=== PATIENT | male | born 1940 | race Two or more races ===

== ENCOUNTER 2017-02-01 19:00 | Inpatient (IN) | payer OTHER, MEDICAID ==
[~2017-02-01] VITALS: Ht 167.6 cm; Wt 93.4 kg
--- NOTE | 2017-02-01 19:14 | NUR ---
PT BIB FAMILY C/O FEVER, CHILLS, AND BODY ACHES. PT AOX3 GREEK SPEAKING. FAMILY AT BEDSIDE TO TRANSLATE. RR EVEN AND UNLABORED. NO SOB NOTED. NAD NOTED. NO NVD AT THIS TIME. PT GOWNED AND PLACED ON MONITOR WAITING FOR MD QUIGLEY.
[2017-02-01] MEDS ORDERED: ONDANSETRON HCL/PF 4 MG/2 ML VIAL ONE (19:16)
[2017-02-01] MEDS ORDERED: ACETAMINOPHEN ES 500 MG TABLET ONE ×2 (19:16→21:19)
[2017-02-01 19:18] LABS: BASOPHILS # (AUTO) 0.1 /CMM (0.0-0.2); BASOPHILS % (AUTO) 0.7 % (0.0-2.0); EOSINOPHILS % (AUTO) 0.5 % (0.0-6.0); HEMATOCRIT 41 % (39-51); HEMOGLOBIN 13.6 g/dL (13.5-17.5); LYMPHOCYTES # (AUTO) 0.7 /CMM (0.8-4.8); LYMPHOCYTES % (AUTO) 7.8 % (20.0-44.0); MEAN CORPUSCULAR HEMOGLOBIN 30 PG (26.0-33.0); MEAN CORPUSCULAR HGB CONC 34 g/dl (31.0-36.0); MEAN CORPUSCULAR VOLUME 88 fL (80-96); MONOCYTES # (AUTO) 0.1 /CMM (0.1-1.30); MONOCYTES % (AUTO) 0.7 % (2.0-12.0); NEUTROPHILS # (AUTO) 8.7 /CMM (1.8-8.9); NEUTROPHILS % (AUTO) 90.3 % (43.0-81.0); PLATELET COUNT (AUTO) 173 /CMM (150-450); RDW COEFFICIENT OF VARIATION 12.4 (11.5-15.0); WHITE BLOOD COUNT (AUTO) 9.6 K/uL (4.3-11.0)
--- NOTE | 2017-02-01 19:28 | NUR ---
URINE COLLECTED AND INFLUENZA COLLECTED. CALLED LAB FOR INFORMATION CODER.
[2017-02-01 19:30] LABS: CALCIUM, SERUM 8.7 mg/dL (8.5-10.1); CARBON DIOXIDE 25 mmol/L (21-32); CHLORIDE 99 mmol/L (98-107); CREATININE 1.4 mg/dL (0.6-1.3); GLUCOSE 129 mg/dL (74-106); POTASSIUM 3.1 mmol/L (3.5-5.1); SODIUM SERUM 136 mmol/L (136-145); UREA NITROGEN, BLOOD 9 mg/dL (7-18)
[2017-02-01] MEDS ORDERED: ONDANSETRON HCL/PF 4 MG/2 ML VIAL IVP ONE (19:30)
[2017-02-01] MEDS ORDERED: IV NS 0.9% 500 ML BAG IV ONE (19:30)
[2017-02-01] MEDS ORDERED: ACETAMINOPHEN ES 500 MG TABLET PO ONE ×2 (19:30→21:30)
[2017-02-01 19:32] LABS: INR 0.95 (0.87-1.13); PROTHROMBIN TIME 9.9 SECS (9.5-12.7)
[2017-02-01 19:33] LABS: APPEARANCE,URINE Slightly Cloudy (CLEAR); BILIRUBIN,URINE Negative (NEGATIVE); BLOOD, URINE Moderate Ery/uL (NEGATIVE); COLOR,URINE Yellow (YELLOW); KETONES,URINE Negative (NEGATIVE); LEUKOCYTE ESTERASE ,URINE Trace (NEGATIVE); NITRITE, URINE Negative (NEGATIVE); PH,URINE 5.5 (5.0-8.0); PROTEIN,URINE >=300 mg/dl (NEGATIVE); UGLUCOSE Negative (NEGATIVE); UROBILINOGEN,URINE 0.2 EU/dL (0.2)
[2017-02-01 19:35] LABS: ALANINE AMINOTRANSFERASE 29 U/L (12-78); ALKALINE PHOSPHATASE 100 U/L (46-116); ASPARTATE AMINOTRANSFERASE 26 U/L (15-37); BILIRUBIN,DIRECT 0.1 mg/dL (0.0-0.2); BILIRUBIN,TOTAL 0.6 mg/dL (0.2-1.0); TOTAL PROTEIN, SERUM 8.6 g/dL (6.4-8.2)
[2017-02-01 19:36] LABS: TROPONIN I < 0.017 ng/mL (0.00-0.056)
[2017-02-01 19:53] LABS: BACTERIA,URINE Few /HPF (None Seen); HYALINE CASTS, URINE Few /LPF (None Seen); MUCUS,URINE Rare /LPF (None Seen); SQUAMOUS EPITHELIAL CELL,UR Few /HPF (None Seen)
[2017-02-01] MEDS ORDERED: CEFTRIAXONE 1GM BAG (ER ONLY) 1 GM/50 ML PIGGYBACK IV ONE (20:00)
[2017-02-01] MEDS ORDERED: IV NS 0.9% 1,000 ML BAG IV ONE (20:00)
[2017-02-01] MEDS ORDERED: CEFTRIAXONE 1GM BAG (ER ONLY) 50 ML IV ONE (20:02)
[2017-02-01] MEDS ORDERED: LIDOCAINE 2% JEL UROJET 10 ML MM ONE ×2 (20:08→20:30)
--- NOTE | 2017-02-01 20:11 | NUR ---
CALLED [employer] FERMENTER OPERATOR WAS PAGED.
--- NOTE | 2017-02-01 21:17 | NUR ---
DR. ROSENBERG AWARE PT ORAL TEMP 103.1
--- NOTE | 2017-02-01 21:17 | NUR ---
REPORT GIVEN TO DORIS CR FOR [facility] BED 107.
--- NOTE | 2017-02-01 21:40 | NUR ---
BLOCK MACHINE OPERATOR NOTES RECEIVED PTS AND REPORT FROM NORMA ER NURSE , PTS IS 76 Y/O A/O TUNISIAN SPEAKING UNDER THE MEDICAL SERVICE OF DR KRISTAL AGUILERA, WITH ADMITTING DX OF SEPSIS /UTI , PTS ON O2 VIA NC AT 2 LITERS SATING 99%.FAMILY AT BEDSIDE , UPDATED ON PTS CURRENT CONDITION ROUTINE ADMISSION CARE RENDERED , ADMISSION ORDER NOTED AND CARREID OUT V/S STABLE EXCEPT TEMP 103. BED BATH RENDERED , COOLING BLANKET ADMINISTERED ,ALL NEEDS ATTENDED TOO CALL LIGHT,KEPT PTS CLEAN DRY AND COMFORTABLE. WITH HL ON RAC G#18 intact and patent .f/c intact draining with yellowish urine output. will continue to monitor.
--- NOTE | 2017-02-01 21:43 | NUR ---
PT TRASNFERRED PER ACLS PROTOCOL.
[2017-02-01 21:59] VITALS: BP 157/81
[2017-02-01] MEDS ORDERED: DEXTROSE 50%-WATER 50 ML DISP.SYRIN IV PRN (22:30)
[2017-02-01] MEDS ORDERED: ONDANSETRON HCL/PF 4 MG/2 ML VIAL IVP PRN (22:30)
[2017-02-01] MEDS ORDERED: MAGNESIUM HYDROXIDE 30 ML UDC PO PRN (22:30)
[2017-02-01] MEDS ORDERED: Z GUARD REMEDY 2 OZ OINT TP PRN (22:30)
[2017-02-01] MEDS ORDERED: ENOXAPARIN SODIUM 40 MG/0.4 ML DISP.SYRIN SQ SCH (22:30)
[2017-02-01] MEDS ORDERED: VANCOMYCIN 1 GM in IV D5W 250 ML IV SCH (22:30)
[2017-02-01] MEDS ORDERED: POTASSIUM CHLORIDE 20 MEQ TAB.PRT.SR PO ONE ×2 (22:30→22:50)
[2017-02-01] MEDS ORDERED: HYDROCODONE/APAP 5/325MG 1 EACH TABLET PO PRN (22:30)
[2017-02-01] MEDS ORDERED: MAG HYDROX/AL HYDROX/SIMETH 30 ML UDC PO PRN (22:30)
[2017-02-01] MEDS ORDERED: ZOLPIDEM TARTRATE 5 MG TABLET PO PRN (22:30)
[2017-02-01] MEDS ORDERED: ENOXAPARIN SODIUM 40 MG/0.4 ML DISP.SYRIN SQ ONE (22:50)
[2017-02-01] MEDS ORDERED: VANCOMYCIN 1 GM VIAL ONE (22:51)
[2017-02-01] MEDS: IV NS 0.9% 1,000 ML IV PRN (23:06)
[2017-02-02] VITALS: BP 137/73
--- NOTE | 2017-02-02 | NUR ---
SPEECH COMMUNICATION PROFESSOR NOTES TEMP OF 104.2 COLLING BLANKET APPLIED , DUE MEDS GIVEN ORDERED. WILL CONTINUE TO MONITOR.
--- NOTE | 2017-02-02 02:00 | NUR ---
BALL RACKER NOTES TEMP IS 103 CONTINUE ON COOLING BLANKET
--- NOTE | 2017-02-02 03:00 | NUR ---
LIME TRIMMER NOTES TEMP WENT DOWN TO 101 CONTINUE ON COOLING BLANKET ,IVF IN PROGRESS.
[2017-02-02] MEDS ORDERED: PIPERACILLIN /TAZOBACTAM 2.25 G VIAL IV ONE (03:01)
[2017-02-02 04:00] VITALS: BP 138/69
--- NOTE | 2017-02-02 04:29 | NUR ---
SACK MAKER NOTES UNABLE TO SCAN THE ZOSYN DOSE FOR 5AM DO IT MANUALLY D/T ZOSYN COMES ON 2.25GMS ORDER DOSE IS 4.5 GMS
--- NOTE | 2017-02-02 04:31 | NUR ---
BI APPLICATION DEVELOPER NOTES LATEST TEMP IS 100.4 PTS CONTINUE ON COOLING MEASURES.
[2017-02-02] MEDS ORDERED: PIPERACILLIN /TAZOBACTAM 4.5 G in IV D5W 50 ML IV SCH (05:00)
[2017-02-02 06:31] LABS: EOSINOPHILS % (AUTO) 0.1 % (0.0-6.0); HEMATOCRIT 44 % (39-51); HEMOGLOBIN 14.6 g/dL (13.5-17.5); LYMPHOCYTES # (AUTO) 0.3 /CMM (0.8-4.8); LYMPHOCYTES % (AUTO) 1.5 % (20.0-44.0); MEAN CORPUSCULAR HEMOGLOBIN 30 PG (26.0-33.0); MEAN CORPUSCULAR HGB CONC 33 g/dl (31.0-36.0); MEAN CORPUSCULAR VOLUME 90 fL (80-96); MONOCYTES # (AUTO) 0.4 /CMM (0.1-1.30); MONOCYTES % (AUTO) 1.9 % (2.0-12.0); NEUTROPHILS # (AUTO) 19.6 /CMM (1.8-8.9); NEUTROPHILS % (AUTO) 96.5 % (43.0-81.0); PLATELET COUNT (AUTO) 147 /CMM (150-450); RDW COEFFICIENT OF VARIATION 13.6 (11.5-15.0); RED BLOOD CELL COUNT(AUTO) 4.91 MIL/uL (4.5-6.0); WHITE BLOOD COUNT (AUTO) 20.3 K/uL (4.3-11.0)
--- NOTE | 2017-02-02 06:35 | NUR ---
MANAGER INFUSION NOTES PTS SLEEPING IN BED , LATEST TEMP IS 101 , CONTINUE ON COOLING MEASURES . DAUGHTER AT BEDSIDE . WILL INDORSE TO RN DAY SHIFT FOR CONTINUITY OF CARE.
--- NOTE | 2017-02-02 07:37 | NUR ---
RN NOTES RECEIVED PT IN STABLE CONDITION A&0X3, MOSTLY SAMI SPEAKING, ON 2L NC SATING WELL, NO SOB OR DISTRESS NOTED. SR ON THE TELE MONITOR HR 82. L HAND 22G IV SITE INTACT WITH IVF AT 100ML/HR. COOLING BLANKET IN PLACE. SON AT BEDSIDE. BED LOCKED AND IN LOWEST POSITION, CALL LIGHT WITHIN REACH, SIDE RAILS UPX3, WILL CONT TO STEPHANIE.
[2017-02-02 07:55] LABS: CHOLESTEROL 94 mg/dL (<200); HDL CHOLESTEROL 44 mg/dL (40-60); LDL 38 mg/dL (0-99); THYROID STIMULATING HORMONE 0.511 uIU/mL (0.358-3.74); TRIGLYCERIDES 67 mg/dL (30-150)
[2017-02-02 08:00] VITALS: BP 153/69
[2017-02-02] MEDS ORDERED: FEE PK DOSING 1 MIN EA MC ONE (08:10)
[2017-02-02] MEDS: BLOOD SUGAR DIAGNOSTIC 1 EACH STRIP IN SCH ×4 (08:26→22:45)
[2017-02-02] MEDS: ACETAMINOPHEN 325 MG TABLET PO PRN ×2 (08:26→17:12)
[2017-02-02 08:53] LABS: CARBON DIOXIDE 22 mmol/L (21-32); CHLORIDE 103 mmol/L (98-107); POTASSIUM 4.3 mmol/L (3.5-5.1); SODIUM SERUM 141 mmol/L (136-145)
[2017-02-02 08:54] LABS: CALCIUM, SERUM 8.7 mg/dL (8.5-10.1); CREATININE 1.5 mg/dL (0.6-1.3); GLUCOSE 139 mg/dL (74-106); MAGNESIUM 1.7 mg/dL (1.8-2.4); PHOSPHORUS 3.7 mg/dL (2.5-4.9); UREA NITROGEN, BLOOD 9 mg/dL (7-18)
[2017-02-02] MEDS ORDERED: FINA5TAB11 PO (09:00)
[2017-02-02] MEDS ORDERED: LISI40TA4 PO (09:00)
[2017-02-02] MEDS ORDERED: TAMS-12 PO (09:00)
[2017-02-02] MEDS ORDERED: AMLO10TA4 PO (09:00)
[2017-02-02] MEDS ORDERED: TIOT18CA3 IH (09:00)
[2017-02-02] MEDS ORDERED: PANT40TA2 PO (09:00)
[2017-02-02] MEDS ORDERED: METF500T7 PO (09:00)
[2017-02-02] MEDS ORDERED: METO25TA3 PO (09:00)
[2017-02-02] MEDS ORDERED: ASPI-1169 PO (09:00)
[2017-02-02] MEDS ORDERED: ISOS60TA4 PO (09:00)
[2017-02-02] MEDS ORDERED: ATOR40TA PO (09:00)
[2017-02-02 09:34] LABS: BAND % (MANUAL) 13 % (0.0-5.0); LYMPHOCYTES % (MANUAL) 1 % (16-48); MONOCYTES % (MANUAL) 4 % (0-11.0); NEUTROPHILS % (MANUAL) 82 (42-76)
[2017-02-02] MEDS ORDERED: VANCOMYCIN 0.75 GM in IV D5W 250 ML IV SCH (11:00)
[2017-02-02] MEDS ORDERED: IBUPROFEN 400 MG TABLET PO PRN (11:30)
[2017-02-02] MEDS ORDERED: AMLODIPINE BESYLATE 10 MG TABLET PO PRN (11:30)
[2017-02-02 12:00] VITALS: BP 118/48
[2017-02-02] MEDS ORDERED: PIPERACILLIN /TAZOBACTAM 3.375 G in IV D5W 50 ML IV SCH (12:00)
[2017-02-02] MEDS: INSULIN REGULAR, HUMAN 100 UNIT/ML 3 ML VIAL SQ PRN ×2 (12:13→22:38)
[2017-02-02] MEDS: Magnesium 1GM/D5W 100ML PREMIX 100 ML IV SCH ×2 (12:14→13:50)
[2017-02-02 16:00] VITALS: BP 153/72
[2017-02-02] MEDS: MEROPENEM 1 G in IV NS 0.9% 100 ML IV SCH (18:17)
--- NOTE | 2017-02-02 18:50 | NUR ---
RN NOTES PT REMAINED IN STABLE CONDITION, ALL NEEDS MET. FAMILY AT BEDSIDE. NO COMPLAINTS OF PAIN. WILL ENDORSE TO ONCOMING SHIFT.
--- NOTE | 2017-02-02 19:15 | NUR ---
MS RN NOTES RECEIVED PATIENT AND REPORT FROM DAY SHIFT
[2017-02-02 20:00] VITALS: BP 113/46
[2017-02-02] MEDS ORDERED: ENOXAPARIN SODIUM 40 MG/0.4 ML DISP.SYRIN SQ SCH (21:00)
[2017-02-02] MEDS ORDERED: ATORVASTATIN 40 MG TABLET PO SCH (22:00)
[2017-02-03 04:00] VITALS: BP 152/64
[2017-02-03] MEDS: IV NS 0.9% 1,000 ML IV PRN (04:15)
[2017-02-03] MEDS: ACETAMINOPHEN 325 MG TABLET PO PRN ×2 (05:53→14:35)
[2017-02-03 06:32] LABS: EOSINOPHILS % (AUTO) 0.2 % (0.0-6.0); HEMATOCRIT 41 % (39-51); HEMOGLOBIN 13.5 g/dL (13.5-17.5); LYMPHOCYTES # (AUTO) 0.6 /CMM (0.8-4.8); MEAN CORPUSCULAR HEMOGLOBIN 29 PG (26.0-33.0); MEAN CORPUSCULAR HGB CONC 33 g/dl (31.0-36.0); MEAN CORPUSCULAR VOLUME 89 fL (80-96); MONOCYTES # (AUTO) 0.4 /CMM (0.1-1.30); MONOCYTES % (AUTO) 3.6 % (2.0-12.0); NEUTROPHILS # (AUTO) 10.7 /CMM (1.8-8.9); NEUTROPHILS % (AUTO) 91.2 % (43.0-81.0); PLATELET COUNT (AUTO) 104 /CMM (150-450); RDW COEFFICIENT OF VARIATION 13.6 (11.5-15.0); RED BLOOD CELL COUNT(AUTO) 4.61 MIL/uL (4.5-6.0); WHITE BLOOD COUNT (AUTO) 11.7 K/uL (4.3-11.0)
[2017-02-03 06:50] LABS: CARBON DIOXIDE 26 mmol/L (21-32); CHLORIDE 103 mmol/L (98-107); CREATININE 1.2 mg/dL (0.6-1.3); GLUCOSE 116 mg/dL (74-106); MAGNESIUM 1.9 mg/dL (1.8-2.4); PHOSPHORUS 2.2 mg/dL (2.5-4.9); POTASSIUM 3.1 mmol/L (3.5-5.1); SODIUM SERUM 137 mmol/L (136-145); UREA NITROGEN, BLOOD 10 mg/dL (7-18)
--- NOTE | 2017-02-03 07:39 | NUR ---
RN OPENING NOTES RECEIVED PT AWAKE IN BED IN NO ACUTE SIGNS OF DISTRESS WITH DAUGHTER AT BEDSIDE. A/O X4, SPEAKS SAUDI ARABIAN MOSTLY. ON SUPPLEMENTAL 02 VIA N/C AT 2LPM, NO SOB NOTED. IV ACCESS ON L HAND 22G INTACT AND PATENT WITH IVF OF NS @ 100ML/HR INFUSING, NO SIGNS OF INFILTRATION NOTED. BED LOCKED AND IN LOWEST POSITION WITH SIDE RAILS UP X3. CALL LIGHT WITHIN REACH. WILL CONT TO MONITOR.
[2017-02-03 08:00] VITALS: BP 127/61
[2017-02-03] MEDS: BLOOD SUGAR DIAGNOSTIC 1 EACH STRIP IN SCH ×3 (08:00→17:47)
[2017-02-03] MEDS: LACTOBACILLUS RHAMNOSUS GG 1 EACH CAP.SPRINK PO SCH ×2 (08:49→16:32)
[2017-02-03] MEDS: MEROPENEM 1 G in IV NS 0.9% 100 ML IV SCH (08:49)
[2017-02-03] MEDS: ISOSORBIDE MONONITRATE 20 MG TABLET PO SCH ×2 (08:53→14:35)
[2017-02-03] MEDS ORDERED: TAMSULOSIN 0.4 MG CAP.SR.24H PO SCH (09:00)
[2017-02-03] MEDS ORDERED: ASPIRIN 81 MG TAB.CHEW PO SCH (09:00)
[2017-02-03] MEDS ORDERED: METOPROLOL SUCCINATE 50 MG TAB.SR.24H PO SCH (09:00)
[2017-02-03] MEDS ORDERED: FINASTERIDE (5 MG) 5 MG TABLET PO SCH (09:00)
--- NOTE | 2017-02-03 09:51 | NUR ---
RN NOTES PT NOTED WITH LOW K 3.1 AND PHOS 2.2, FLOUR INSPECTOR RISHABH AWARE WITH ORDER TO ADMINISTER KDUR 60 MEQ TAB X1 AND NEUTRA PHOS 500MG X1. WILL CONTINUE TO MONITOR.
[2017-02-03] MEDS ORDERED: K PHOS NEUTRAL 250 MG TABLET PO ONE (10:00)
[2017-02-03] MEDS ORDERED: POTASSIUM CHLORIDE 20 MEQ TAB.PRT.SR PO ONE (10:00)
--- NOTE | 2017-02-03 11:46 | NUR ---
RN NOTES RECEIVED CALL FROM LAB THAT PT'S PROCALCITONIN LEVEL IS HIGH 31.4, MANAGER MOUNTAIN RISHABH MADE AWARE. NO NEW ORDER MADE AT THIS TIME. WILL CONTINUE TO MONITOR.
[2017-02-03] MEDS: INSULIN REGULAR, HUMAN 100 UNIT/ML 3 ML VIAL SQ PRN ×2 (11:53→17:48)
--- NOTE | 2017-02-03 14:51 | NUR ---
RN NOTES PT NOTED WITH ELEVATED TEMP OF 100.4F, PRN TYLENOL 650MG TAB GIVEN. WILL CONTINUE TO MONITOR
[2017-02-03 16:00] VITALS: BP 103/49
[2017-02-03] MEDS ORDERED: MERO1VIA IV (16:39)
--- NOTE | 2017-02-03 18:29 | NUR ---
RN TRANSFERRED NOTES PT TRANSFERRED TO [facility] ALERT AND ORIENTED X4 WITH STABLE V/S. HE LEFT UNIT VIA GURNEY ACCOMPANIED BY 2 EMT'S AND DAUGHTER. PT CONNECTED TO 02 VIA NC @ 2LPM, NO SIGNS OF SOB NOTED. V/S TAKEN AND RECORDED. SKIN IS INTACT. BELONGINGS CHECKED, COUNTED AND SIGNED FORM. EXIT CARE REVIEWED WITH PT AND DAUGHTER. HEALTH TEACHINGS GIVEN TO PT AND DAUGHTER AND BOTH VERBALIZED UNDERSTANDING. REPORT GIVEN TO DORIS KAUR OF [facility]. LALIT KEATING AND CHARGE NURSE AWARE OF DISCHARGE.
== END 2017-02-03 18:07 | disposition short-term general hospital (02) | DRG 871 ==
LOC: ER 19:01 → TELE-TD 21:53 → TELE1 21:58 → MEDSG1 02-02 13:35
DX: A41.50 Gram-negative sepsis, unspecified (principal); N17.0 Acute kidney failure with tubular necrosis; R65.21 Severe sepsis with septic shock; N39.0 Urinary tract infection, site not specified; R65.20 Severe sepsis without septic shock; E11.9 Type 2 diabetes mellitus without complications; E78.5 Hyperlipidemia, unspecified; E87.6 Hypokalemia; I10 Essential (primary) hypertension; I25.10 Atherosclerotic heart disease of native coronary artery without angina pectoris; I25.2 Old myocardial infarction; K21.9 Gastro-esophageal reflux disease without esophagitis; Z86.73 Personal history of transient ischemic attack (TIA), and cerebral infarction without residual deficits; Z87.440 Personal history of urinary (tract) infections; Z98.61 Coronary angioplasty status; Z88.5 Allergy status to narcotic agent; Z88.8 Allergy status to other drugs, medicaments and biological substances; Z88.6 Allergy status to analgesic agent; Z88.1 Allergy status to other antibiotic agents; Z91.040 Latex allergy status; N40.0 Benign prostatic hyperplasia without lower urinary tract symptoms; E83.42 Hypomagnesemia; Z79.82 Long term (current) use of aspirin; Z79.84 Long term (current) use of oral hypoglycemic drugs; Z79.899 Other long term (current) drug therapy; N41.9 Inflammatory disease of prostate, unspecified; E11.22 Type 2 diabetes mellitus with diabetic chronic kidney disease; E11.65 Type 2 diabetes mellitus with hyperglycemia; I12.9 Hypertensive chronic kidney disease with stage 1 through stage 4 chronic kidney disease, or unspecified chronic kidney disease; N18.9 Chronic kidney disease, unspecified
CPT/HCPCS: 36415; 71010-TC; 80048-TC; 80061-TC; 80076-TC; 81000-TC; 82962-TC; 83605-TC; 83735-TC; 84100-TC; 84443-TC; 84484-TC; 85025-TC; 85730-TC; 87040-TC; 87081-TC; 87086-TC; 87186-TC; 87400; A4606; J0696; J1650; J1815; J2185; J2405; J2543; J3370; J3475; J3490; J7030; J7060; Z7610